=== PATIENT | male | born 1960 | race Caucasian/White ===

== ENCOUNTER 2020-09-17 12:50 | Outpatient (CLI) | payer OTHER, SELFPAY ==
--- NOTE | ~2020-09-17 | XR_ITS ---
XR hand BI arthritis min 3V DATE: 09/17/2020 13:21 INDICATION: Arthritis. Numbness to medial right hand. TECHNIQUE: 4 views of each hand COMPARISON: None FINDINGS: Right hand: There is osteoarthritis at multiple joints including the first carpometacarpal, first and second meta carpophalangeal and multiple interphalangeal joints. No fracture or dislocation, periosteal reaction or bone destruction. Left hand: There is osteoarthritis at multiple joints including first carpometacarpal and particularly the first metacarpophalangeal and second metacarpophalangeal joints, also the third and fifth metacarpophalang eal joints and multiple interphalangeal joints. No fracture, dislocation, periosteal reaction or bone destruction. IMPRESSION: Polyarticular osteoarthritis of the right and left hands Reviewed, dictated and finalized at location A.
== END 2020-09-17 12:51 | disposition home or self-care (01) ==
LOC: ANHIMG 12:53
PROVIDERS: PCP Family Medicine; Visit Provider Family Medicine
DX: M19.041 Primary osteoarthritis, right hand (principal); M19.042 Primary osteoarthritis, left hand
CPT/HCPCS: 73130